=== PATIENT | female | born 1965 | race Caucasian/White ===

== ENCOUNTER 2018-02-17 18:59 | Emergency (ER) | payer MEDICAID ==
[~2018-02-17] VITALS: Ht 165.1 cm; Wt 95.0 kg
[~2018-02-17 18:59] MED LIST: GLIP5TAB8 PO; INSU100V2 SQ; LEVO100T5 PO; LISI-519 PO; METF1000 PO; METO100T PO
[2018-02-17 19:53] VITALS: BP 160/84; PULSE 77; RESP 18; TEMP 98.4; O2SAT 95
--- NOTE | 2018-02-17 20:58 | PD ---
HPI Chief Complaint: Cold / Flu Symptoms Time Seen by Provider: 20:57 Travel History International Travel<30 days: No Contact w/Intl Traveler<30days: No Traveled to known affect area: No History of Present Illness HPI 52-year-old female came to the emergency room with history of sore throat, nasal congestion, cough and not feeling well for past 1 week. Patient had fever in between of 101 over the weekend. Wednesday she had gone to [facility] emergency room where as per the patient no test was done and she was discharged home on Bactrim and a nasal spray for possible sinus infection. Patient said that she took Bactrim for 3 days until she started getting some blisters around her mouth and stopped taking it. She has not been feeling any better and hence she is here now. No known sick contacts. 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 Patient is a diabetic and has not checked her blood sugar in past 2 days. She has been taking her usual medication like he supposed to. No nausea or vomiting. Vital signs were stable. [facility] Past Medical History Narrative Medical List of her past medical, surgical, social and family history is reviewed from the nursing note. Cardiovascular Problems: Yes (HTN) Diabetes: Yes Patient Takes Glucophage: Yes Hypertension: Yes Immunizations Current: Yes Thyroid Disease: Yes Tetanus Vaccination: < 5 Years Influenza Vaccination: No ?: Unknown : 4 Para: 4 Past Surgical History Section: Yes (x 2) Hysterectomy: Yes Social History Alcohol Use: No Tobacco Use: No Substance Use: No Allergies-Medications (Allergen,Severity, Reaction): Coded Allergies: acetaminophen (Unverified Allergy, Severe, 02/17/18) amlodipine (Unverified Allergy, Severe, Swelling, 02/17/18) hydrocodone (Unverified Allergy, Severe, 02/17/18) penicillin G (Unverified Allergy, Severe, Rash, 02/17/18) Comments List of her allergies reviewed from the nursing note. Reported Meds & Prescriptions Reported Meds & Active Scripts Active Zithromax Z-Jeff (Azithromycin) 250 Mg Dspk 250 Mg PO DIRECTED 500 MG (2 tabs) day 1, then 1 tab days 2-5. Reported Humulin R Inj (Insulin Human Regular) 1,000 Unit/10 Ml Vial 60 Units SQ BID Levothyroxine (Levothyroxine Sodium) 100 Mcg Tab 100 Mcg PO DAILY Metformin (Metformin HCl) 1,000 Mg Tab 1,000 Mg PO BIDPC Lisinopril 5 Mg Tab 5 Mg PO BID Metoprolol Tartrate 100 Mg Tab 100 Mg PO BID Narrative Medication List of her home medications reviewed from the nursing note. Review of Systems Except as stated in HPI: all other systems reviewed are Neg HENT: Positive: Sore Throat, Congestion Respiratory: Positive: Cough Physical Exam Narrative GENERAL: Awake, alert, mild distress, obese SKIN: Focused skin assessment warm/dry. HEAD: Atraumatic. Normocephalic. EYES: Pupils equal and round. No scleral icterus. No injection or drainage. ENT: No nasal bleeding or discharge. Mucous membranes pink and moist. Pharyngeal erythema and some tonsillar exudate NECK: Trachea midline. No JVD. No stridor CARDIOVASCULAR: Regular rate and rhythm. No murmur appreciated. RESPIRATORY: No accessory muscle use. Clear to auscultation. Breath sounds equal bilaterally. GASTROINTESTINAL: Abdomen soft, non-tender, nondistended. Hepatic and splenic margins not palpable. MUSCULOSKELETAL: No obvious deformities. No clubbing. No cyanosis. No edema. NEUROLOGICAL: Awake and alert. No obvious cranial nerve deficits. Motor grossly within normal limits. Normal speech. PSYCHIATRIC: Appropriate mood and affect; insight and judgment normal. Data Data Last Documented VS Vital Signs Date Time Temp Pulse Resp B/P (MAP) Pulse Ox O2 Delivery O2 Flow Rate FiO2 02/17/18 22:50 02/17/18 21:02 98.8 88 20 98 Room Air Orders Orders Group A Rapid Strep Screen (02/17/18 21:08) Influenzae A/B Antigen (02/17/18 21:08) Chest, Pa & Lat (02/17/18 ) Blood Glucose (02/17/18 21:08) Strep Culture (Group A) (02/17/18 21:15) Ed Discharge Order (02/17/18 22:01) MDM Medical Decision Making Medical Screen Exam Complete: Yes Emergency Medical Condition: Yes Medical Record Reviewed: Yes Differential Diagnosis Strep pharyngitis, influenza, viral illness Narrative Course 9:59 PM rapid strep and influenza swab was negative. I have ordered a chest x- ray. Awaiting further report. I have planned to discharge the patient home on Z-Jeff. Procedures EKG Prior to Arrival: No Diagnosis Primary Impression: Pharyngitis Qualified Codes: J02.9 - Acute pharyngitis, unspecified Additional Impression: Viral illness Referrals: Primary Care Physician Additional Instructions: Take the medication as per the prescription direction. Return to the ER if condition worsens any other new concerns. Otherwise follow-up with your primary care. Med/Other Pt SpecificInfo: Prescription(s) given Scripts Azithromycin (Zithromax Z-Jeff) 250 Mg Dspk 250 MG PO DIRECTED for Infection, #1 DSPK 0 Refills 500 MG (2 tabs) day 1, then 1 tab days 2-5. Prov: Adan Allen MD 02/17/18 Disposition: 01 DISCHARGE HOME Condition: Stable Adan Allen MD Feb 17, 2018 20:58
[2018-02-17 21:02] VITALS: BP 155/62; PULSE 88; RESP 20; TEMP 98.8; O2SAT 98
--- NOTE | 2018-02-17 21:57 | RADRPT ---
EXAM DATE/TIME: 02/17/2018 21:21 [place] COMPARISON: No previous studies available for comparison. INDICATIONS : Cough MEDICAL HISTORY : None. SURGICAL HISTORY : None. ENCOUNTER: Initial ACUITY: 2 weeks PAIN SCORE: 0/10 LOCATION: chest FINDINGS: PA and lateral views of the chest demonstrate the lungs to be symmetrically aerated without evidence of mass, infiltrate or effusion. The cardiomediastinal contours are unremarkable. Osseous structure s are intact. CONCLUSION: No acute disease. Gino Balderas MD on February 17, 2018 at 21:54 Board Certified Radiologist. This report was verified electronically.
[2018-02-17] MEDS ORDERED: ZITHTAB PO (22:00)
== END 2018-02-17 22:52 | disposition home or self-care (01) ==
LOC: NEPD 18:59
DX: J02.9 Acute pharyngitis, unspecified (principal); B34.9 Viral infection, unspecified; I10 Essential (primary) hypertension; E11.9 Type 2 diabetes mellitus without complications
CPT/HCPCS: 71046; 87081; 87804; 87880; 99284

== ENCOUNTER 2018-03-27 02:52 | Emergency (ER) | payer MEDICAID ==
[~2018-03-27] VITALS: Ht 162.6 cm; Wt 105.0 kg
[~2018-03-27 02:52] MED LIST changes: -GLIP5TAB8 PO; +ZITHTAB PO
[2018-03-27 03:02] VITALS: BP 190/84; PULSE 74; RESP 20; TEMP 97.5; O2SAT 97
[2018-03-27] MEDS ORDERED: BACT800T5 PO (04:01)
--- NOTE | 2018-03-27 04:02 | PD ---
HPI Chief Complaint: Skin Problem Time Seen by Provider: 03:58 Travel History International Travel<30 days: No Contact w/Intl Traveler<30days: No Traveled to known affect area: No History of Present Illness HPI 52-year-old female patient with history of diabetes, presents to the ER today for 1 week history of right leg area of redness that has been getting worse with a central black spot. She states that it started with a red spot. She states is hurting more and is spreading. She denies any fevers or any other issues. She does not know how it started, is not sure whether there was an insect bite or not. Modifying Factors: None Associated Signs & Symptoms: Right leg area of redness, pain Risk Factors: Diabetic PFSH Past Medical History Cardiovascular Problems: Yes (HTN) Diabetes: Yes Patient Takes Glucophage: Yes (03/26/2018 1100) Diminished Hearing: No Hypertension: Yes Immunizations Current: Yes Thyroid Disease: Yes Tetanus Vaccination: < 5 Years Influenza Vaccination: No ?: Not : 4 Para: 4 Past Surgical History Section: Yes (x 2) Hysterectomy: Yes (parital) Social History Alcohol Use: No Tobacco Use: No Substance Use: No Allergies-Medications (Allergen,Severity, Reaction): Coded Allergies: amlodipine (Unverified Allergy, Severe, Swelling, 03/27/18) hydrocodone (Unverified Allergy, Severe, 03/27/18) penicillin G (Unverified Allergy, Severe, Rash, 03/27/18) Reported Meds & Prescriptions Reported Meds & Active Scripts Active Zithromax Z-Jeff (Azithromycin) 250 Mg Dspk 250 Mg PO DIRECTED 500 MG (2 tabs) day 1, then 1 tab days 2-5. Reported Humulin R Inj (Insulin Human Regular) 1,000 Unit/10 Ml Vial 60 Units SQ BID Levothyroxine (Levothyroxine Sodium) 100 Mcg Tab 100 Mcg PO DAILY Metformin (Metformin HCl) 1,000 Mg Tab 1,000 Mg PO BIDPC Lisinopril 5 Mg Tab 5 Mg PO BID Metoprolol Tartrate 100 Mg Tab 100 Mg PO BID Review of Systems Except as stated in HPI: all other systems reviewed are Neg Physical Exam Narrative GENERAL: Well-developed middle-age female patient currently in mild distress. Awake and oriented 3. SKIN: Focused skin assessment warm/dry. There is a 2 cm area of erythema which is circular and forearm, with a central dark eschar. No underlying fluctuance. Tender to palpation. HEAD: Atraumatic. Normocephalic. EYES: Pupils equal and round. No scleral icterus. No injection or drainage. ENT: No nasal bleeding or discharge. Mucous membranes pink and moist. NECK: Trachea midline. No JVD. Supple. CARDIOVASCULAR: Regular rate and rhythm. No murmur appreciated. RESPIRATORY: No accessory muscle use. Clear to auscultation. Breath sounds equal bilaterally. GASTROINTESTINAL: Abdomen soft, non-tender, nondistended. Hepatic and splenic margins not palpable. MUSCULOSKELETAL: No obvious deformities. No clubbing. No cyanosis. No edema. NEUROLOGICAL: Awake and alert. No obvious cranial nerve deficits. Motor grossly within normal limits. Normal speech. PSYCHIATRIC: Appropriate mood and affect; insight and judgment normal. Data Data Last Documented VS Vital Signs Date Time Temp Pulse Resp B/P (MAP) Pulse Ox O2 Delivery O2 Flow Rate FiO2 03/27/18 03:02 97.5 74 20 190/84 (119) 97 MDM Medical Decision Making Medical Screen Exam Complete: Yes Emergency Medical Condition: Yes Medical Record Reviewed: Yes Differential Diagnosis Cellulitis versus wound infection versus abscess Narrative Course I do not palpate any obvious fluctuance and do not think that this is an abscess. However, this wound does appear to be infected. At this point, my plan would be to put her on p.o. antibiotics and have her follow-up in a few days with her primary care doctor. She should return for any signs of worsening redness, pain, drainage, fevers, and as needed. The plan was discussed with her and she states understanding. Diagnosis Primary Impression: Wound infection Med/Other Pt SpecificInfo: Prescription(s) given Scripts Sulfamethoxazole-Trimethoprim (Bactrim DS) 800-160 Mg Tab 1 TAB PO BID for Infection, #14 TAB 0 Refills Prov: Jin Yoo MD 03/27/18 Disposition: 01 DISCHARGE HOME Condition: Stable Jin Yoo MD March 27, 2018 04:01
[2018-03-27] MEDS ORDERED: INSULIN HUMAN REGULAR 1,000 UNITS/10 ML VIAL SQ ONE (04:30)
[2018-03-27 04:33] VITALS: BP 130/69
== END 2018-03-27 04:38 | disposition home or self-care (01) ==
LOC: NEPC 02:52
DX: L08.9 Local infection of the skin and subcutaneous tissue, unspecified (principal); E11.9 Type 2 diabetes mellitus without complications; I10 Essential (primary) hypertension; E07.9 Disorder of thyroid, unspecified; Z79.4 Long term (current) use of insulin
CPT/HCPCS: 96372; 99283; J1815

== ENCOUNTER 2018-09-23 21:02 | Observation (INO) ==
[2018-09-23] MEDS ORDERED: Ketorolac Inj 30 MG/ML (IVP) Vial IV.PUSH ONE (21:36)
[2018-09-23 22:02] LABS: Baso # (Auto) 0.1 th/mm3 (0.0-0.2); Baso % (Auto) 1.3 % (0.0-2.0); Eos # (Auto) 0.3 th/mm3 (0.0-0.4); Hematocrit 37.2 % (35.0-46.0); Hemoglobin 12.8 gm/dL (11.6-15.3); Lymph % (Auto) 36.1 % (9.0-44.0); Mean Corpuscular HGB Conc 34.4 % (32.0-36.0); Mean Corpuscular Hemoglobin 29.6 pg (27.0-34.0); Mean Corpuscular Volume 86.2 fL (80.0-100.0); Mean Platelet Volume 8.9 fL (7.0-11.0); Mono # (Auto) 0.5 th/mm3 (0.0-0.9); Mono % (Auto) 6.4 % (0.0-8.0); Neut # (Auto) 4.4 th/mm3 (1.8-7.7); Neut % (Auto) 52.2 % (16.0-70.0); Platelet Count 273 th/mm3 (150-450); Red Blood Count 4.32 mil/mm3 (4.00-5.30); Red Cell Distribution Width 13.2 % (11.6-17.2); White Blood Count 8.4 th/mm3 (4.0-11.0)
[2018-09-23 22:30] LABS: Alanine Aminotransferase 28 U/L (10-53); Albumin 3.4 g/dL (3.4-5.0); Alkaline Phosphatase 85 U/L (45-117); Anion Gap 9 meq/L (5-15); Aspartate Aminotransferase 28 U/L (15-37); Blood Urea Nitrogen 16 mg/dL (7-18); Carbon Dioxide 30.1 meq/L (21.0-32.0); Chloride 99 meq/L (98-107); Glomerular Filtration Rate 69 mL/min (>89); Glucose,Random 213 mg/dL (74-106); Potassium 3.7 meq/L (3.5-5.1); Sodium 138 meq/L (136-145); Total Protein 7.4 g/dL (6.4-8.2)
--- NOTE | 2018-09-23 22:37 | XR ---
EXAM DATE: 09/23/2018 10:24 PM EST AGE/SEX: 52 years / Female INDICATIONS: Chest pain for 1 day. CLINICAL DATA: This is the patient's initial encounter. Patient reports that signs and symptoms have been present for 1 day and indicates a pain score of 10/10. MEDICAL/SURGICAL HISTORY: None. None. COMPARISON: [facility] – [place], CHEST PA & LAT, 02/17/2018. . FINDINGS: A single AP view of the chest demonstrates the lungs to be symmetrically aerated without evidence of mass, infiltrate or effusion. The cardiomediastinal contours are unremarkable. Osseous structures a re intact. CONCLUSION: No evidence of acute cardiopulmonary disease. Electronically signed by: Gurwinder Castano MD 09/23/2018 10:35 PM EST
--- NOTE | 2018-09-23 22:48 | ED ---
HPI General Chief Complaint: Shortness of Breath/Dyspnea Stated Complaint: Chest/Lungs/Breathing/Back Complaint Time Seen by Provider: 09/23/18 21:25 Source: patient Mode of arrival: ambulatory Limitations: no limitations History of Present Illness 52-year-old female came to the emergency room with history of shortness of breath on exertion and pleuritic chest pain on the left side radiating to her left scapular area. Patient says that this started this morning and she has progressively not felt good today. No history of fever or chills. No history of cough or hemoptysis. No history of syncopal episode. Patient denies any history of PE or DVTs in the past. No history of cancer or prolonged immobilization. Patient said that she had a stress test 2 years ago in [place] and as far as she knows she does not have any history of coronary artery disease. She is a diabetic. She is not a smoker. Patient has history of asthma but her shortness of breath this time felt different than her usual asthma episodes. Patient does not require oxygen at home. Her room air oxygen saturation was 96%. Related Data Home Medications Medication Instructions Recorded Confirmed glipizide 5 mg PO DAILY 05/27/18 09/23/18 levothyroxine 100 mcg PO DAILY 05/27/18 09/23/18 lisinopril-hydrochlorothiazide 1 tab PO DAILY 05/27/18 09/23/18 metoprolol tartrate 25 mg PO BID 05/27/18 09/23/18 [id number] carb-vit K 1 tab PO DAILY 05/27/18 09/23/18 [Women's Multivitamin] omeprazole 20 mg PO DAILY 05/27/18 09/23/18 insulin NPH and regular human 50 unit SUBCUT BID 08/09/18 09/23/18 [Humulin 70/30 U-100 Insulin] Previous Rx's Medication Instructions Recorded metformin 1,000 mg PO BID #0 tab 09/24/18 Allergies Allergy/AdvReac Type Severity Reaction Status Date / Time amlodipine Allergy Severe Swelling Verified 09/23/18 21:28 penicillin G Allergy Severe Rash Verified 09/23/18 21:28 Review of Systems ROS: all other systems reviewed are negative Constitutional Reports fatigue Cardiovascular Reports chest pain Respiratory Reports dyspnea on exertion PMFSH History History Provided By: Patient Medical History Medical History Asthma (Acute) delivery delivered (Acute) Diabetes (Acute) Hypertension (Acute) Hypothyroid (Acute) Surgical History Surgical History History of partial hysterectomy (Acute) Social History Social History Substance History: No History of Abuse Second Hand Smoke Exposure: Yes Smoking Status: Never smoker Tobacco Type: Cigarettes How Often Do You Have a Drink Containing Alcohol: Monthly or less Recent Travel in [facility] within the Last 8 Weeks: No Recent Out of Country Travel within the Last 8 Weeks: No Exam Narrative Exam Narrative: GENERAL: Awake, alert, obese, moderate distress SKIN: Focused skin assessment warm/dry. HEAD: Atraumatic. Normocephalic. EYES: Pupils equal and round. No scleral icterus. No injection or drainage. ENT: No nasal bleeding or discharge. Mucous membranes pink and moist. NECK: Trachea midline. No JVD. CARDIOVASCULAR: Regular rate and rhythm. No murmur appreciated. RESPIRATORY: No accessory muscle use. Clear to auscultation. Breath sounds equal bilaterally. GASTROINTESTINAL: Abdomen soft, non-tender, nondistended. Hepatic and splenic margins not palpable. MUSCULOSKELETAL: No obvious deformities. No clubbing. No cyanosis. No edema. NEUROLOGICAL: Awake and alert. No obvious cranial nerve deficits. Motor grossly within normal limits. Normal speech. PSYCHIATRIC: Appropriate mood and affect; insight and judgment normal. Course Initial Documented Vital Signs Temperature 98.3 F 09/23/18 21:21 Pulse Rate 70 09/23/18 21:21 Respiratory Rate 26 H 09/23/18 21:21 Blood Pressure 166/77 H 09/23/18 21:21 Pulse Oximetry 96 09/23/18 21:21 Last Documented Vital Signs Temperature 97.6 F 09/24/18 11:44 Pulse Rate 62 09/24/18 11:44 Respiratory Rate 16 09/24/18 11:44 Blood Pressure 148/76 H 09/24/18 11:44 Pulse Oximetry 97 09/24/18 11:44 Medical Decision Making MDM Narrative Medical decision making narrative: 10:47 PM most of the blood test results are back and within acceptable limits. Awaiting for a CT pulmonary angiogram. Patient was given [address] pulmonary angiogram is negative for PE then she will be admitted to the chest pain center to be ruled out. 11:[address] pulmonary angiogram was read by the radiologist as negative for PE. I discussed the test results with her including the incidental finding of the lung nodule. Patient will be admitted to the chest pain center to rule out ACS. She understands the plan. I answered all her questions to the best of my ability. Medical Screen Exam Complete: Yes Emergency Medical Condition: Yes Lab Data Result diagrams: 09/23/18 21:45 09/23/18 21:45 Lab Results 09/23/18 09/23/18 09/23/18 Range/Units 21:45 21:45 21:45 WBC 8.4 (4.0-11.0) th/mm3 RBC 4.32 (4.00-5.30) mil/mm3 Hgb 12.8 (11.6-15.3) gm/dL Hct 37.2 (35.0-46.0) % MCV 86.2 (80.0-100.0) fL MCH 29.6 (27.0-34.0) pg MCHC 34.4 (32.0-36.0) % RDW 13.2 (11.6-17.2) % Plt Count 273 (150-450) th/mm3 MPV 8.9 (7.0-11.0) fL Neut % (Auto) 52.2 (16.0-70.0) % Lymph % (Auto) 36.1 (9.0-44.0) % [place] % (Auto) 6.4 (0.0-8.0) % Eos % (Auto) 4.0 (0.0-4.0) % Baso % (Auto) 1.3 (0.0-2.0) % Neut # (Auto) 4.4 (1.8-7.7) th/mm3 Lymph # (Auto) 3.0 (1.0-4.8) th/mm3 [place] # (Auto) 0.5 (0.0-0.9) th/mm3 Eos # (Auto) 0.3 (0.0-0.4) th/mm3 Baso # (Auto) 0.1 (0.0-0.2) th/mm3 WBC Differential . Differential Comment Auto diff final Sodium 138 (136-145) meq/L Potassium 3.7 (3.5-5.1) meq/L Chloride 99 (98-107) meq/L Carbon Dioxide 30.1 (21.0-32.0) meq/L Anion Gap 9 (5-15) meq/L BUN 16 (7-18) mg/dL Creatinine 0.86 (0.50-1.00) mg/dL Estimated GFR 69 L (>89) mL/min POC Glucose (68-110) mg/dl Random Glucose 213 H (74-106) mg/dL Calcium 9.0 (8.5-10.1) mg/dL Total Bilirubin 0.4 (0.2-1.0) mg/dL AST 28 (15-37) U/L ALT 28 (10-53) U/L Alkaline Phosphatase 85 (45-117) U/L Total Creatine Kinase (26-192) U/L Troponin I Less than 0.02 L (0.02-0.05) ng/mL B-Natriuretic Peptide 14 (0-100) pg/mL Total Protein 7.4 (6.4-8.2) g/dL Albumin 3.4 (3.4-5.0) g/dL 09/24/18 09/24/18 09/24/18 Range/Units 00:50 03:00 08:39 WBC (4.0-11.0) th/mm3 RBC (4.00-5.30) mil/mm3 Hgb (11.6-15.3) gm/dL Hct (35.0-46.0) % MCV (80.0-100.0) fL MCH (27.0-34.0) pg MCHC (32.0-36.0) % RDW (11.6-17.2) % Plt Count (150-450) th/mm3 MPV (7.0-11.0) fL Neut % (Auto) (16.0-70.0) % Lymph % (Auto) (9.0-44.0) % [place] % (Auto) (0.0-8.0) % Eos % (Auto) (0.0-4.0) % Baso % (Auto) (0.0-2.0) % Neut # (Auto) (1.8-7.7) th/mm3 Lymph # (Auto) (1.0-4.8) th/mm3 [place] # (Auto) (0.0-0.9) th/mm3 Eos # (Auto) (0.0-0.4) th/mm3 Baso # (Auto) (0.0-0.2) th/mm3 WBC Differential Differential Comment Sodium (136-145) meq/L Potassium (3.5-5.1) meq/L Chloride (98-107) meq/L Carbon Dioxide (21.0-32.0) meq/L Anion Gap (5-15) meq/L BUN (7-18) mg/dL Creatinine (0.50-1.00) mg/dL Estimated GFR (>89) mL/min POC Glucose 168 H (68-110) mg/dl Random Glucose (74-106) mg/dL Calcium (8.5-10.1) mg/dL Total Bilirubin (0.2-1.0) mg/dL AST (15-37) U/L ALT (10-53) U/L Alkaline Phosphatase (45-117) U/L Total Creatine Kinase 68 58 (26-192) U/L Troponin I Less than 0.02 L Less than 0.02 L (0.02-0.05) ng/mL B-Natriuretic Peptide (0-100) pg/mL Total Protein (6.4-8.2) g/dL Albumin (3.4-5.0) g/dL Imaging Data Radiologist's impression: Chest CTA 09/23/18 21:36 CONCLUSION: 1. No pulmonary embolus. 2. 18 mm focal consolidation of the right middle lobe that is probably atelectasis. 6 mm indeterminate nodule of the left lower lobe. Six-month follow- up noncontrast chest CT is recommended. 3. Minimal patchy atelectasis otherwise of both lungs. Chest X-Ray 09/23/18 21:36 CONCLUSION: No evidence of acute cardiopulmonary disease. Myocardial Perfusion Scan Nuc Med 09/24/18 09:31 CONCLUSION: 1. No stress-induced ischemia demonstrated. 2. Generalized hypokinesia with a mildly decreased left ventricular ejection fraction. ECG Data Attestation: I personally reviewed and interpreted this ECG as follows: Interpretation: Twelve-lead EKG was reviewed by me. Normal sinus rhythm, left axis deviation, PVC is, lateral T wave inversions. Heart rate of 67 bpm. Discharge Plan Discharge Disposition Patient Disposition: 30 Still Patient Discharge Condition Condition: Stable Discharge Order Discharge Orders: Discharge Order (Routine); Ordered 09/24/18 Ordered By: Mahamed Lopez Physicians Team ED Provider: Adan Allen Primary Care Provider: UNKNOWN, Attending Provider: Tamara Quiles ED Status: Left Department Discharge Information Discharge Date/Time: 09/24/18 01:00
--- NOTE | 2018-09-23 23:00 | CT ---
EXAM DATE: 09/23/2018 10:52 PM EST AGE/SEX: 52 years / Female INDICATIONS: Chest pain, Short of breath CLINICAL DATA: This is the patient's initial encounter. Patient reports that signs and symptoms have been present for 1 day and indicates a pain score of 10/10. MEDICAL/SURGICAL HISTORY: Asthma. Diabetes. Hypertension. section. Hysterectomy. RADIATION DOSE: 10.82 CTDI (mGy) COMPARISON: No prior exams available for comparison. TECHNIQUE: Volumetric scanning was performed using a multi-row detector CT scanner during bolus infu nikki of 74ML ml Omnipaque 350 (iohexol) nonionic water-soluble contrast as a single exam dose. The d angelita was post processed with a variety of visualization algorithms including full volume maximum inten sity projection and sliding thin slab reformation. Using automated exposure control and adjustment o f the mA and/or kV according to patient size, radiation dose was kept as low as reasonably achievable to obtain optimal diagnostic quality images. DICOM format image data is available electronically fo r review and comparison. FINDINGS: Pulmonary Arteries: No filling defects are seen in the pulmonary arteries out to the subsegmental ve ssels. The left and right pulmonary arteries are normal in diameter. Lun mm nodular consolidation in the right middle lobe. 6 mm nodule left lower lobe.. Effusion: None. Mediastinum: No evidence of mediastinal or hilar adenopathy. Other: Normal axillary no acute bony abnormality demonstrated.. CONCLUSION: 1. No pulmonary embolus. 2. 18 mm focal consolidation of the right middle lobe that is probably atelectasis. 6 mm indetermina te nodule of the left lower lobe. Six-month follow-up noncontrast chest CT is recommended. 3. Minimal patchy atelectasis otherwise of both lungs. Electronically signed by: Gurwinder Castano MD 09/23/2018 10:59 PM EST
[2018-09-24 01:45] LABS: Creatine Kinase 68 U/L (26-192)
[2018-09-24 04:48] LABS: Creatine Kinase 58 U/L (26-192)
[2018-09-24 07:59] VITALS: RESP 16; O2SAT 97
[2018-09-24] MEDS ORDERED: Metoprolol Tartrate 25 MG Tablet PO SCH (09:45)
[2018-09-24] MEDS ORDERED: Aspirin 325 MG Tablet PO SCH (09:45)
[2018-09-24] MEDS ORDERED: Lisinopril 20 MG Tablet PO SCH (09:45)
[2018-09-24] MEDS ORDERED: Pantoprazole Sodium 20 MG DR Tablet PO SCH (09:45)
--- NOTE | 2018-09-24 10:27 | P.HPCA ---
History of Present Illness Primary Care Physician: UNKNOWN Chief Complaint: Chest pain History of Present Illness: This is a 52-year-old female history of hypertension, diabetes, hypothyroidism, asthma that presents to ED with complaint of discomfort that began in the center of her chest that radiated to the left. This began yesterday. She was short of breath as well with the. Lasted for several hours. States that the day prior that she began having a cough. She had a good color cough and felt warm and had chills. States this there are multiple sick contacts where she works including someone that was positive for influenza. Cannot recall any prior cardiac workup. History of diabetes, hypertension, hypothyroidism, asthma, peripheral neuropathy. Denies known CAD. Denies hyperlipidemia and states that she is not on a statin even with history of diabetes. She states her brother had an IL at age 55. Non-smoker. - Diagnosis (1) Chest pain (2) Diabetes (3) Hypertension (4) Hypothyroidism (5) Asthma (6) Abnormal CT scan, chest Review of Systems General: Subjective fever and had chills. Patient denies recent travel. HEENT: Patient denies headache, sore throat, difficulty swallowing. Cardiovascular: Has the chest discomfort as mentioned above. Denies sensation of heart beating rapidly or irregularly. No syncope. Respiratory: She was short of breath. Denies inspirational chest discomfort. Denies coughing wheezing or hemoptysis. GI: Patient denies nausea, vomiting, diarrhea, abdominal pain, bloody stools. Musculoskeletal: Patient denies joint pain or edema. Denies calf pain or edema. Neurovascular: Patient denies numbness, tingling, weakness in extremities. Denies headache. Endocrine: Denies polyuria and polydipsia. Hematologic: Denies easy bruising. Skin: Denies rash or itching. PMFSH - History History Provided By: Patient - Medical History Medical History: Medical History (Last Reviewed 09/23/18 @ 22:46 by Adan Allen MD) Asthma delivery delivered Diabetes Hypertension Hypothyroid - Surgical History Surgical History: Surgical History (Last Reviewed 09/23/18 @ 22:46 by Adan Allen MD) History of partial hysterectomy - Tobacco History Second Hand Smoke Exposure: Yes Smoking Status: Never smoker Tobacco Type: Cigarettes - Alcohol History How Often Do You Have a Drink Containing Alcohol: Monthly or less - Substance Use History Substance History: No History of Abuse - Travel History Recent Travel in the [place] Within the Last 8 Weeks: No Recent Travel Out of the Country Within the Last 8 Weeks: No Medications and Allergies Active Medications: Active Medications Albuterol (Duoneb Neb (Prn)) 1 ampul NEB Q4HR NEB PRN PRN Reason: SHORTNESS OF BREATH/WHEEZING Aspirin (Aspirin) 325 mg PO DAILY [facility] Last Admin: 09/24/18 09:39 Dose: 325 mg Hydrochlorothiazide (Hydrodiuril) 25 mg PO DAILY [facility] Insulin Human Regular (Novolin R Correctional Sugar Inj) 0 units SQ ACHS [facility]; Protocol Levothyroxine Sodium (Synthroid) 100 mcg PO DAILY@0600 [facility] Lisinopril (Prinivil) 20 mg PO DAILY [facility] Last Admin: 09/24/18 09:46 Dose: 20 mg Metoprolol Tartrate (Lopressor) 25 mg PO BID [facility] Last Admin: 09/24/18 09:40 Dose: 25 mg Pantoprazole Sodium (Protonix) 20 mg PO DAILY [facility] Last Admin: 09/24/18 09:40 Dose: 20 mg Sodium Chloride (Ns Flush) 2 ml IV.FLUSH UNSCH PRN PRN Reason: FLUSH AFTER USING IV ACCESS Sodium Chloride (Ns Flush) 2 ml IV.FLUSH BID [facility] Last Admin: 09/24/18 09:46 Dose: 2 ml Sodium Chloride (Ns Flush) 2 ml IV.FLUSH PRN PRN PRN Reason: FLUSH AFTER USING IV ACCESS Allergies Allergy/AdvReac Type Severity Reaction Status Date / Time amlodipine Allergy Severe Swelling Verified 09/23/18 21:28 penicillin G Allergy Severe Rash Verified 09/23/18 21:28 Home Medications Medication Instructions Recorded Confirmed Type glipizide 5 mg PO DAILY 05/27/18 09/23/18 History levothyroxine 100 mcg PO DAILY 05/27/18 09/23/18 History lisinopril-hydrochlorothiazide 1 tab PO DAILY 05/27/18 09/23/18 History metformin 1,000 mg PO BID 05/27/18 09/23/18 History metoprolol tartrate 25 mg PO BID 05/27/18 09/23/18 History lf-[id number]-FA-Ca carb-vit K 1 tab PO DAILY 05/27/18 09/23/18 History [Women's Multivitamin] omeprazole 20 mg PO DAILY 05/27/18 09/23/18 History insulin NPH and regular human 50 unit SUBCUT BID 08/09/18 09/23/18 History [Humulin 70/30 U-100 Insulin] Exam Vital signs: Vital Signs 09/23/18 21:21 09/24/18 00:34 09/24/18 02:00 Temperature 98.3 F Pulse Rate 70 59 L Respiratory Rate 26 H Blood Pressure 166/77 H Pulse Oximetry 96 97 97 09/24/18 04:00 09/24/18 07:57 Temperature 97.3 F L 97.5 F L Pulse Rate 58 L 80 Respiratory Rate 14 16 Blood Pressure 121/60 154/79 H Pulse Oximetry 96 97 Intake & Output 09/23/18 09/24/18 09/24/18 18:59 06:59 18:59 Intake Total 0 / 0 Output Total 0 / 0 Balance 0 / 0 Weight 105 kg Intake: Oral 0 / 0 Output: Urine 0 / 0 Stool 0 / 0 Narrative: GENERAL: This is a well-nourished, well-developed patient, in no apparent distress. Patient speaks in clear complete sentences. Patient is pleasant. HEENT: Head is atraumatic and normocephalic. Neck is supple without lymphadenopathy and trachea is midline. No JVD or carotid bruits. CARDIOVASCULAR: Regular rate and rhythm without murmurs, gallops, or rubs. RESPIRATORY: Clear to auscultation. Breath sounds equal bilaterally. No wheezes , rales, or rhonchi. Chest wall is tender. No use of accessory muscles. GASTROINTESTINAL: Abdomen is nontender, nondistended. Abdomen soft. No obvious pulsatile mass or bruit. No CVA tenderness. Strong femoral pulses bilaterally. Normal bowel sounds in all quadrants. MUSCULOSKELETAL: Patient is moving upper and lower extremities freely. No calf tenderness or edema, no Homans sign. Strong pulses in upper and lower extremities. NEUROLOGICAL: Patient is alert and oriented. Cranial nerves 2-12 are grossly intact. No focal deficits and speech is clear. SKIN: No rash and turgor is normal. Results 09/23/18 21:45 09/23/18 21:45 Cardiac Enzymes 09/23/18 09/23/18 09/24/18 Range/Units 21:45 21:45 00:50 AST 28 (15-37) U/L Troponin I Less than 0.02 L Less than 0.02 L (0.02-0.05) ng/mL B-Natriuretic Peptide 14 (0-100) pg/mL 09/24/18 Range/Units 03:00 AST (15-37) U/L Troponin I Less than 0.02 L (0.02-0.05) ng/mL B-Natriuretic Peptide (0-100) pg/mL Coagulation 09/23/18 Range/Units 21:45 B-Natriuretic Peptide 14 (0-100) pg/mL CBC 09/23/18 Range/Units 21:45 WBC 8.4 (4.0-11.0) th/mm3 RBC 4.32 (4.00-5.30) mil/mm3 Hgb 12.8 (11.6-15.3) gm/dL Hct 37.2 (35.0-46.0) % Plt Count 273 (150-450) th/mm3 Neut # (Auto) 4.4 (1.8-7.7) th/mm3 Lymph # (Auto) 3.0 (1.0-4.8) th/mm3 [place] # (Auto) 0.5 (0.0-0.9) th/mm3 Eos # (Auto) 0.3 (0.0-0.4) th/mm3 Baso # (Auto) 0.1 (0.0-0.2) th/mm3 Comprehensive Metabolic Panel 09/23/18 Range/Units 21:45 Sodium 138 (136-145) meq/L Potassium 3.7 (3.5-5.1) meq/L Chloride 99 (98-107) meq/L Carbon Dioxide 30.1 (21.0-32.0) meq/L BUN 16 (7-18) mg/dL Creatinine 0.86 (0.50-1.00) mg/dL Calcium 9.0 (8.5-10.1) mg/dL AST 28 (15-37) U/L ALT 28 (10-53) U/L Alkaline Phosphatase 85 (45-117) U/L Total Protein 7.4 (6.4-8.2) g/dL Albumin 3.4 (3.4-5.0) g/dL Intake and Output 11/09/18 11/10/18 11/10/18 22:59 06:59 14:59 Intake Total 0 / 0 Output Total 0 / 0 Balance 0 / 0 Intake: Oral 0 / 0 Output: Urine 0 / 0 Stool 0 / 0 Other: Weight 105 kg - Imaging and Cardiology Imaging: Impressions Chest CTA 09/23/18 21:36 CONCLUSION: 1. No pulmonary embolus. 2. 18 mm focal consolidation of the right middle lobe that is probably atelectasis. 6 mm indeterminate nodule of the left lower lobe. Six-month follow- up noncontrast chest CT is recommended. 3. Minimal patchy atelectasis otherwise of both lungs. Chest X-Ray 09/23/18 21:36 CONCLUSION: No evidence of acute cardiopulmonary disease. EKG interpretations - EKG EKG shows: sinus rhythm (EKGs are sinus rhythm with diffuse T wave changes.) Caprini VTE Risk Assessment Caprini VTE Risk Assessment: No/Low Risk (score <= 1) Caprini Risk Assessment Model: Point Value = 1 Point Value = 2 Point Value = 3 Point Value = 5 Age 41-60 Minor surgery BMI > 25 kg/m2 Swollen legs Varicose veins or History of unexplained or recurrent spontaneous Oral contraceptives or hormone replacement Sepsis (< 1 month) Serious lung disease, including pneumonia (< 1 month) Abnormal pulmonary function Acute myocardial infarction Congestive heart failure (< 1 month) History of inflammatory bowel disease Medical patient at bed rest Age 61-74 Arthroscopic surgery Major open surgery (> 45 min) Laparoscopic surgery (> 45 min) Malignancy Confined to bed (> 72 hours) Immobilizing plaster cast Central venous access Age >= 75 History of VTE Family history of VTE Factor V Leiden Prothrombin [id number] Lupus anticoagulant Anticardiolipin antibodies Elevated serum homocysteine Heparin-induced thrombocytopenia Other congenital or acquired thrombophilia Stroke (< 1 month) Elective arthroplasty Hip, pelvis, or leg fracture Acute spinal cord injury (< 1 month) Prophylaxis Regimen: Total Risk Factor Score Risk Level Prophylaxis Regimen 0-1 Low Early ambulation 2 Moderate Order ONE of the following: *Sequential Compression Device (SCD) *Heparin 5000 units SQ BID 3-4 Higher Order ONE of the following medications: *Heparin 5000 units SQ TID *Enoxaparin/Lovenox 40 mg SQ daily (WT < 150 kg, CrCl > 30 mL/min) *Enoxaparin/Lovenox 30 mg SQ daily (WT < 150 kg, CrCl > 10-29 mL/min) *Enoxaparin/Lovenox 30 mg SQ BID (WT < 150 kg, CrCl > 30 mL/min) AND/OR *Sequential Compression Device (SCD) 5 or more Highest Order ONE of the following medications: *Heparin 5000 units SQ TID (Preferred with Epidurals) *Enoxaparin/Lovenox 40 mg SQ daily (WT < 150 kg, CrCl > 30 mL/min) *Enoxaparin/Lovenox 30 mg SQ daily (WT < 150 kg, CrCl > 10-29 mL/min) *Enoxaparin/Lovenox 30 mg SQ BID (WT < 150 kg, CrCl > 30 mL/min) AND *Sequential Compression Device (SCD) Assessment and Plan - Assessment (1) Chest pain Code(s): R07.9 - Chest pain, unspecified Status: Acute (2) Diabetes Code(s): E11.9 - Type 2 diabetes mellitus without complications Status: Acute (3) Hypertension Code(s): I10 - Essential (primary) hypertension Status: Acute (4) Hypothyroidism Code(s): E03.9 - Hypothyroidism, unspecified Status: Acute (5) Asthma Code(s): J45.909 - Unspecified asthma, uncomplicated Status: Acute (6) Abnormal CT scan, chest Code(s): R93.89 - Abnormal findings on diagnostic imaging of other specified body structures Status: Acute - Plan * Chest pain: Patient has had serial cardiac enzymes and EKGs for ruling out purposes. She will be seen by Dr. Webb of cardiology in the chest pain center. She will undergo a Lexiscan. She will be discharged home if her stress test is nonischemic with instructions to follow-up with PCP. Return to ED for interval issues. * Diabetes: Continue medication. Patient is discuss going on statin with her PCP with history of diabetes. * Hypertension: Continue medication. * Hypothyroidism: Continue medication. * History of asthma: Have DuoNeb's as needed. * Abnormal CT of the chest: Repeat CT in 6 months. Patient is stable at this time. She is agreeable to this plan.
[2018-09-24 11:45] VITALS: BP 148/76; PULSE 62; TEMP 97.6
[2018-09-24] MEDS ORDERED: Insulin NovoLIN Regular Correctional Sugar Inj SQ SCH (12:00)
--- NOTE | 2018-09-24 12:19 | ECG ---
Date Performed: 09/24/2018 Time Performed: 00:54:50 PTAGE: 52 years EKG: Sinus rhythm WITH OCCASIONAL VENTRICULAR PREMATURE COMPLEXES MARKED LEFT AXIS DEVIATION MODERATE INTRAVENTRICULAR CONDUCTION DELAY ST DEVIATION AND MODERATE T-WAVE ABNORMALITY, CONSIDER LATERAL ISCHEMIA ST DEVIATIO N AND MODERATE T-WAVE ABNORMALITY, CONSIDER INFERIOR ISCHEMIA ABNORMAL ECG PREVIOUS TRACING : 09/23/2018 21.29 Since previous tracing, no significant change noted DOCTOR: Richard Webb Interpretating Date/Time 09/24/2018 12:18:16
[2018-09-24] MEDS ORDERED: Regadenoson Inj 0.4 MG/5 ML Syringe IV.PUSH ONE (12:33)
--- NOTE | 2018-09-24 13:30 | ECG ---
Date Performed: 09/24/2018 Time Performed: 03:54:51 PTAGE: 52 years EKG: Sinus rhythm WITH FREQUENT VENTRICULAR PREMATURE COMPLEXES BORDERLINE LEFT AXIS DEVIATION MODERATE INTRAVENTRICUL AR CONDUCTION DELAY ST DEVIATION AND MODERATE T-WAVE ABNORMALITY, CONSIDER ANTEROLATERAL ISCHEMIA ST DEVIATION AND MODERATE T-WAVE ABNORMALITY, CONSIDER INFERIOR ISCHEMIA ABNORMAL ECG PREVIOUS TRACING : 09/24/2018 00.54 Since previous tracing, no significant change noted DOCTOR: Richard Webb Interpretating Date/Time 09/24/2018 13:28:27
--- NOTE | 2018-09-24 14:38 | ECG ---
Date Performed: 09/23/2018 Time Performed: 21:29:31 PTAGE: 52 years EKG: Sinus rhythm WITH OCCASIONAL VENTRICULAR PREMATURE COMPLEXES BORDERLINE LEFT AXIS DEVIATION MODERATE INTRAVENTRIC ULAR CONDUCTION DELAY ST DEVIATION AND MODERATE T-WAVE ABNORMALITY, CONSIDER LATERAL ISCHEMIA ABNORMA L ECG NO PREVIOUS TRACING DOCTOR: Richard Webb Interpretating Date/Time 09/24/2018 14:36:33
--- NOTE | 2018-09-24 15:10 | NM ---
EXAM DATE: 09/24/2018 2:54 PM EST AGE/SEX: 52 years / Female INDICATIONS:Angina. . Chest pain radiating to left side,. CLINICAL DATA: This is the patient's initial encounter. Patient reports that signs and symptoms have been present for 1 day and indicates a pain score of 3/10. MEDICAL/SURGICAL HISTORY: Diabetes. Hypertension. Hypothyroidism. Asthma. . Partial hystere ctomy, . COMPARISON: No prior exams available for comparison. DOSE: 11.2 mCi Tc 99m Myoview at rest 35.5 mCi [id number] at stress 0.4 mg Lexiscan STRESS SYMPTOMS: None. EJECTION FRACTION: 44 % TECHNIQUE: The patient underwent pharmacologic stress with infusion of prescribed dose. Continuous ECG tracing was monitored during stress. Gated SPECT imaging was performed after stress and conventi onal SPECT imaging was performed at rest. The examination was performed on a SPECT/CT scanner, both attenuation and non-corrected datasets were reviewed. FINDINGS: Distribution: The maximum perfused segment at stress is in the anterior wall. Perfusion Study: The pattern of perfusion at stress is within normal limits. Gated Study: Mild, global hypokinesia. The ejection fraction is calculated at 44%. RISK CATEGORY: Low (<1% Annual Motality Rate) CONCLUSION: 1. No stress-induced ischemia demonstrated. 2. Generalized hypokinesia with a mildly decreased left ventricular ejection fraction. Electronically signed by: Gurwinder Castano MD 09/24/2018 3:08 PM EST
[2018-09-25] MEDS ORDERED: Levothyroxine 100 MCG Tablet PO SCH (06:00)
[2018-09-25] MEDS ORDERED: hydroCHLOROthiazide 25 MG Tablet PO SCH (09:00)
--- NOTE | 2018-09-25 11:35 | TR ---
Date Performed: 09/24/2018 Time Performed: 13:34:31 DOCTOR: Richard Webb DRUG LIST: CLINICAL HISTORY: REASON FOR TEST: Angina REASON FOR ENDING: OBSERVATION: CONCLUSION: COMMENTS: Lexiscan stress test was performed under standard four minute protocol. Radionuclide was injected one minute prior to ending the test. No electrocardiographic abormalities were present t o suggest ischemia. Nuclear imaging and interpretation are pending.
== END 2018-09-24 16:33 | disposition home or self-care (01) ==
LOC: NEDA 21:02 → NEPC 21:02 → NEPFCDU 09-24 01:00
PROVIDERS: ADMIT Internal Medicine Interventional Cardiology; ATTEND Internal Medicine Interventional Cardiology